=== PATIENT | female | born 1995 | race Caucasian/White ===

== ENCOUNTER 2017-10-30 20:29 | Emergency (ER) | payer BC ==
[2017-10-30 20:45] VITALS: BP 137/99
[2017-10-30] MEDS ORDERED: Oseltamivir CAP* 75 MG CAP PO ONE (21:46)
--- NOTE | 2017-10-30 21:48 | UC ---
Dre Hartley Stephanie, scribed for Mary Weston MD on 10/30/17 at 2132 . HPI Febrile Illness - HPI Summary HPI Summary: The pt is a 21 y/o F presenting to with c/o fever that began last night. Symptoms include chills, cough, ear ache, ALLISON and myalgia. The pt denies eye discharge. The pt reports receiving her flu shot in June. On Remicade for treatment of Crohn's colitis x years. Normal blood counts. - History of Current Complaint Chief Complaint: UCGeneralIllness Time Seen by Provider: 10/30/17 21:18 Hx Obtained From: Patient Hx Last Menstrual Period: 10/16/17 Onset/Duration: Started Days Ago - 1, Still Present Timing: Constant Current Severity: Mild Pain Intensity: 3 Pain Scale Used: 0-10 Numeric Aggravating Factors: Nothing Alleviating Factors: Nothing Associated Signs and Symptoms: Chills, Cough, Headache, Myalgia, Other: - ear ache - Allergy/Home Medications Allergies/Adverse Reactions: Allergies Allergy/AdvReac Type Severity Reaction Status Date / Time Iron Sucrose [From Venofer] Allergy Rash Verified 10/30/17 20:38 Home Medications: Home Medications Dextromethorphan-Phenylephrine [Day Time Multi-Symptom Co 10-5-325 mg] 1 cap PO ONCE 10/30/17 [History Confirmed 10/30/17] inFLIXimab* [Remicade*] 100 mg IV ONCE 10/30/17 [History Confirmed 10/30/17] PMH/Surg Hx/FS Hx/Imm Hx GI/ History: Other - crohn's disease Other GI/ History: crohn's disease - Surgical History Surgical History: None - Family History Known Family History: Positive: Unknown - Pt denies any relevant family hx. - Social History Occupation: Student Lives: Dormitory/Roommates Alcohol Use: None Substance Use Type: None Smoking Status (MU): Never Smoked Tobacco Review of Systems Constitutional: Fever, Chills Skin: Negative Eyes: Negative ENT: Ear Ache Respiratory: Cough Cardiovascular: Negative Gastrointestinal: Negative Genitourinary: Negative Motor: Negative Neurovascular: Negative Musculoskeletal: Myalgia Neurological: Headache Psychological: Negative All Other Systems Reviewed And Are Negative: Yes Physical Exam Triage Information Reviewed: Yes Appearance: Ill-Appearing, Pain Distress - mild Vital Signs: Initial Vital Signs Temp 99.6 F 10/30/17 20:40 Pulse 88 10/30/17 20:40 Resp 18 10/30/17 20:40 BP 137/99 10/30/17 20:40 Pulse Ox 98 10/30/17 20:40 Eyes: Positive: Conjunctiva Inflamed - mild injection ENT: Positive: Pharyngeal erythema, TMs normal Neck: Positive: Supple, Nontender, No Lymphadenopathy Respiratory: Positive: Lungs clear, Normal breath sounds Cardiovascular: Positive: RRR, No Murmur Abdomen Description: Positive: Nontender, No Organomegaly, Soft Musculoskeletal Exam: Normal Neurological Exam: Normal Neurological: Positive: Alert, Muscle Tone Normal Psychological Exam: Normal Skin Exam: Normal Diagnostics - Laboratory Diagnostic Studies Completed/Ordered: + influenza Course/Dx - Course Course Of Treatment: The pt is a 21 y/o F presenting to with c/o fever, chills, ALLISON, myalgia, ear ache and cough that began last night. Tamiflu for influenza. - Febrile Illness Differential Diagnoses: Fever of Unknown Origin, Other: - influenza - Diagnoses Clinic Provider Diagnoses: influenza Discharge - Discharge Plan Condition: Stable Disposition: HOME Prescriptions: Oseltamivir CAP* [Tamiflu CAP*] 75 mg PO BID #9 cap Patient Education Materials: Influenza (ED) Referrals: [facility] - Oral VIVEROS [Primary Care Provider] - Additional Instructions: Ensure that you stay well hydrated, and use ibuprofen as needed for fever and aches. Should you develop progressive shortness of breath or chest pain, please return for re-evaluation. Take Tamiflu as directed. The documentation as recorded by the Dre michele Stephanie accurately reflects the service I personally performed and the decisions made by me, Mary Weston MD.
== END 2017-10-30 21:58 | disposition home or self-care (01) ==
LOC: UCEAST 20:29
DX: J11.1 Influenza due to unidentified influenza virus with other respiratory manifestations (principal); K50.90 Crohn's disease, unspecified, without complications
CPT/HCPCS: 87502; 99202; A9270-GY; G0463

== ENCOUNTER 2018-02-02 19:38 | Emergency (ER) | payer BC ==
[2018-02-02 19:54] VITALS: BP 153/80
--- NOTE | 2018-02-02 20:03 | UC ---
Throat Pain/Nasal [place] HPI - HPI Summary HPI Summary: 22 yo female with the onset this am of f/c and sore throat no cp or sob - History of Current Complaint Chief Complaint: UCRespiratory Stated Complaint: SORE THROAT,TONSILS SWOLLEN,CHILLS Time Seen by Provider: 02/02/18 19:49 Hx Obtained From: Patient Hx Last Menstrual Period: 2 weeks Onset/Duration: Gradual Onset Severity: Moderate Pain Intensity: 7 Pain Scale Used: 0-10 Numeric - Allergies/Home Medications Allergies/Adverse Reactions: Allergies Allergy/AdvReac Type Severity Reaction Status Date / Time Iron Sucrose Allergy Rash Verified 02/02/18 19:48 [From Venofer] Home Medications: Home Medications Bcp 1 tab PO DAILY 02/02/18 [History] Cetirizine HCl [Zyrtec] 10 mg PO DAILY 02/02/18 [History Confirmed 02/02/18] Ibuprofen [Advil] 200 mg PO Q8HR PRN 02/02/18 [History Confirmed 02/02/18] PMH/Surg Hx/FS Hx/Imm Hx Previously Healthy: Yes - Surgical History Surgical History: None - Family History Known Family History: Positive: Unknown - Pt denies any relevant family hx., Hypertension - Social History Alcohol Use: Weekly Substance Use Type: None Smoking Status (MU): Never Smoked Tobacco Review of Systems Constitutional: Fever, Chills Skin: Negative Eyes: Negative ENT: Sore Throat Respiratory: Negative Cardiovascular: Negative Gastrointestinal: Negative Genitourinary: Negative Motor: Negative Neurovascular: Negative Musculoskeletal: Negative Neurological: Negative Psychological: Negative Is Patient Immunocompromised?: No All Other Systems Reviewed And Are Negative: Yes Physical Exam Triage Information Reviewed: Yes Appearance: Well-Appearing, No Pain Distress, Well-Nourished Vital Signs: Initial Vital Signs Temp 99.5 F 02/02/18 19:49 Pulse 94 02/02/18 19:49 Resp 18 02/02/18 19:49 BP 153/80 02/02/18 19:49 Pulse Ox 100 02/02/18 19:49 Vital Signs Reviewed: Yes Eyes: Positive: Conjunctiva Clear ENT: Positive: Hearing grossly normal, Pharyngeal erythema, TMs normal, Tonsillar swelling, Uvula midline. Negative: Nasal congestion, Nasal drainage, Tonsillar exudate, Trismus, Muffled voice, Hoarse voice, Sinus tenderness Neck: Positive: Supple, Nontender, Enlarged Nodes @ - ant cerv Respiratory: Positive: Lungs clear, Normal breath sounds, No respiratory distress, No accessory muscle use Cardiovascular: Positive: RRR, No Murmur Musculoskeletal: Positive: ROM Intact, No Edema Neurological: Positive: Alert Psychological Exam: Normal Skin Exam: Normal Diagnostics - Laboratory Diagnostic Studies Completed/Ordered: strep (-) Throat Pain/Nasal Course/Dx - Differential Dx/Diagnosis Provider Diagnoses: exudative tonsillitis Discharge - Sign-Out/Discharge Documenting (check all that apply): Discharge/Admit/Transfer - Discharge Plan Condition: Stable Disposition: HOME Prescriptions: Cephalexin CAP* [Keflex CAP*] 500 mg PO BID #20 cap Patient Education Materials: Tonsillitis (ED) Referrals: [facility] - Oral VIVEROS [Primary Care Provider] - 3 Days (if not better) Additional Instructions: recheck in 2-3 days if not better recheck for new or worsening symptoms - Billing Disposition and Condition Condition: STABLE Disposition: HOME
== END 2018-02-02 20:20 | disposition home or self-care (01) ==
LOC: UCEAST 19:38
DX: J03.90 Acute tonsillitis, unspecified (principal)
CPT/HCPCS: 87651; 99212; G0463

== ENCOUNTER 2018-02-16 16:38 | Emergency (ER) | payer BC ==
[2018-02-16 16:50] VITALS: BP 166/102
[2018-02-16] MEDS ORDERED: Acetaminophen TAB* 325 MG PO ONE (17:02)
[2018-02-16] MEDS ORDERED: Ibuprofen TAB* 400 MG PO ONE (17:03)
--- NOTE | 2018-02-16 17:10 | UC ---
Complaint Female HPI - HPI Summary HPI Summary: Complains of bilateral labial swelling and pain, nausea, lightheadedness starting this morning. Denies vaginal discharge, purulent drainage, urinary symptoms, pelvic pain, back pain, , vomiting, abdominal pain. Patient is sexually active. LMP 2 days ago. Medical history is Crohn's. - History Of Current Complaint Chief Complaint: UCGU Stated Complaint: PERSONAL Time Seen by Provider: 02/16/18 16:57 Hx Last Menstrual Period: 02/14/2018 Onset/Duration: Lasting Hours Timing: Constant Severity Initially: Mild Severity Currently: Moderate Pain Intensity: 6 Pain Scale Used: 0-10 Numeric - Allergies/Home Medications Allergies/Adverse Reactions: Allergies Allergy/AdvReac Type Severity Reaction Status Date / Time MS Iron Sucrose Allergy Rash Verified 02/02/18 19:48 [From Venofer] PMH/Surg Hx/FS Hx/Imm Hx - Surgical History Surgical History: None - Family History Known Family History: Positive: Unknown - Pt denies any relevant family hx., Hypertension - Social History Alcohol Use: Weekly Substance Use Type: None Smoking Status (MU): Never Smoked Tobacco Review of Systems Constitutional: Negative Skin: Other Eyes: Negative ENT: Negative Respiratory: Negative Cardiovascular: Negative Gastrointestinal: Negative Genitourinary: Other Motor: Negative Neurovascular: Negative Musculoskeletal: Negative Neurological: Negative Psychological: Negative Is Patient Immunocompromised?: No All Other Systems Reviewed And Are Negative: Yes Physical Exam Triage Information Reviewed: Yes Appearance: Well-Appearing Vital Signs: Initial Vital Signs Temp 101.8 F 02/16/18 16:44 Pulse 123 02/16/18 16:44 Resp 20 02/16/18 16:44 BP 166/102 02/16/18 16:44 Pulse Ox 100 02/16/18 16:44 Vital Signs Reviewed: Yes Eye Exam: Normal ENT Exam: Normal Neck exam: Normal Respiratory Exam: Normal Cardiovascular Exam: Normal Abdominal Exam: Normal Pelvic Exam: Positive: External Exam Normal, Speculum Exam Normal, Bimanual Exam Normal, No Cerv. Motion Tender, No Masses, Discharge. Negative: Active Bleeding, Blood, Cervicitis, Lesions, Mass, Tender w/ Cervical Motion, Tender Adnexa, Tender Uterus, Ulcers Musculoskeletal Exam: Normal Neurological Exam: Normal Psychological Exam: Normal Skin Exam: Normal Complaint Female Dx - Course Course Of Treatment: bilateral labial swelling redness pain. no lesions, masses. rx for keflex until swabs come back. tylenol and ibuprofen for fever - Differential Dx/Diagnosis Provider Diagnoses: cellulitis Discharge - Sign-Out/Discharge Documenting (check all that apply): Discharge/Admit/Transfer - Discharge Plan Condition: Stable Disposition: HOME Patient Education Materials: Cellulitis (ED) Referrals: [facility] - Oral VIVEROS [Primary Care Provider] - Additional Instructions: Follow-up with primary care. Alternate ibuprofen 400mg and Tylenol 600 mg every 3 hours for fever control. - Billing Disposition and Condition Condition: STABLE Disposition: HOME
== END 2018-02-16 18:08 | disposition home or self-care (01) ==
LOC: UCEAST 16:38
DX: N76.2 Acute vulvitis (principal); K50.90 Crohn's disease, unspecified, without complications
CPT/HCPCS: 81003; 84702; 87480; 87491; 87510; 87591; 87661; 99212; A9270-GY; G0463